=== PATIENT | female | born 1955 | race Caucasian/White ===

== ENCOUNTER 2022-10-14 21:53 | Inpatient (IN) | payer MEDICARE, OTHER ==
[~2022-10-14] VITALS: Ht 160 cm; Wt 98.0 kg
[2022-10-14 22:25] LABS: HEMATOCRIT 41.2 % (31.2-41.9); MEAN CORPUSCULAR HEMOGLOBIN 27.5 uug (24.7-32.8); MEAN CORPUSCULAR VOLUME 85.6 fL (75.5-95.3); PLATELET COUNT (AUTO) 294 K/uL (179-408)
[2022-10-14 22:50] LABS: ETHANOL < 3 MG/DL (0-0)
[2022-10-14] MEDS ORDERED: ACET-2154 PO (22:54)
[2022-10-14] MEDS ORDERED: HALO10TA13 PO (22:54)
[2022-10-14] MEDS ORDERED: MAGN400O6 PO (22:54)
[2022-10-14] MEDS ORDERED: GABA-532 PO (22:54)
[2022-10-14] MEDS ORDERED: MONT10TA33 PO (22:54)
[2022-10-14] MEDS ORDERED: LINA145C PO (22:54)
[2022-10-14] MEDS ORDERED: OXCA150T5 PO (22:54)
[2022-10-14] MEDS ORDERED: GEMF600T90 PO (22:54)
[2022-10-14] MEDS ORDERED: ATOR40TA PO (22:54)
[2022-10-14] MEDS ORDERED: CRAN425C6 PO (22:54)
[2022-10-14] MEDS ORDERED: OMEG-153 PO (22:54)
[2022-10-14] MEDS ORDERED: CALC-494 PO (22:54)
[2022-10-14] MEDS ORDERED: MULT-213 PO (22:54)
[2022-10-14] MEDS ORDERED: HALO100A2 IM (22:54)
[2022-10-14] MEDS ORDERED: MELA5TAB PO (22:54)
[2022-10-14] MEDS ORDERED: DOCU100C36 PO (22:54)
[2022-10-14] MEDS ORDERED: BENZ0.5T43 PO (22:54)
[2022-10-14] MEDS ORDERED: ISOS10TA2 PO (22:54)
[2022-10-14] MEDS ORDERED: SPIR50TA5 PO (22:54)
[2022-10-14 22:58] LABS: BILIRUBIN,DIRECT 0.3 mg/dL (0.0-0.2); BILIRUBIN,TOTAL 0.8 mg/dL (0.2-1.0); CARBON DIOXIDE 25 mmol/L (21-32); CHLORIDE 103 mmol/L (98-107); CREATININE 0.8 mg/dL (0.6-1.3); GLUCOSE 163 mg/dL (74-106); POTASSIUM 3.4 mmol/L (3.5-5.1); UREA NITROGEN, BLOOD 14 mg/dL (7-18)
[2022-10-14 22:59] LABS: ACETAMINOPHEN < 2.0 ug/mL (10-30); ALANINE AMINOTRANSFERASE 65 U/L (14-59); ALKALINE PHOSPHATASE 165 U/L (50-136); ASPARTATE AMINOTRANSFERASE 31 U/L (15-37); CREATINE KINASE, TOTAL 58 U/L (26-192)
--- NOTE | 2022-10-14 23:29 | NUR ---
Patient has been medically cleared by Dr Granado
--- NOTE | 2022-10-14 23:34 | NUR ---
report given to Eli HARVEY - [facility]
--- NOTE | 2022-10-15 00:44 | NUR ---
Pt. admitted to MHU room 138B [place] List completed bonifacio HARVEY aware of patient's arrival
[2022-10-15 01:00] VITALS: BP 133/94
[2022-10-15] MEDS ORDERED: MAG HYDROX/AL HYDROX/SIMETH 30 ML LIQUID UDC PO PRN (02:30)
[2022-10-15] MEDS ORDERED: QUETIAPINE FUMARATE 25 MG TABLET PO PRN ×2 (02:30→06:30)
[2022-10-15] MEDS ORDERED: MAGNESIUM HYDROXIDE 30 ML LIQUID UDC PO PRN (02:30)
--- NOTE | 2022-10-15 02:30 | NUR ---
AT APPROX 0100 ADMITTED 66 YEARS OLD FEMALE [facility] ON A 5150 FOR DTS AND DTO. HOLD WILL ON 10/17/22 AT 2057. PER HOLD, PATIENT WAS AGITATED YELLING AND SCREAMING. SHE REFUSED DIRECTIONS. STAFF REPORTED PATIENT IS REFUSING MEDICATIONS AND FOOD, SHE ALSO THREW THINGS AT STAFF AND RESIDENTS. SHE DENIED EVERYTHING. PATIENT ARRIVED AT THE UNIT VIA WHEELCHAIR AND ACCOMPANIED BY NEWS VIDEOTAPE EDITOR. UPON ADMISSION, PATIENT IS NOTED A/O X 1 TO 2. SHE IS UNCOOPERATIVE WITH ADMISSION PROCESS. SHE IS OBSERVED TALKING TO HERSELF AND TO THE SPACE. PATIENT REFLECTS WHAT IS WRITTEN ON THE HOLD. SHE DENIED THROWING THINGS AT STAFF AND RESIDENTS. SHE ALSO DENIED SI/HI/VA/VH. SHE IS ABLE TO CFS. SHE ALSO ASKED FOR SNACKS AND PO FLUIDS. SKIN ASSESSMENT WAS DONE. IIT WAS NOTED SOME REDNESS AND EXCORATIONS UNDER BOTH OF HER BREAST AND EDEMA +1 ON BOTH LOWER LEGS AND RT ANKLE. SHE REFUSED PICTURES AND SHE REFUSED TO SIGN ANY OF HER ADMISSION PAPERS. PATIENT WAS ADVISED OF HER HOLD, FACE TO FACE ASSESSMENT WAS DONE. SHE WAS GIVEN THE BOOKLET FOR PATIENT'S RIGHTS WHEN IN MENTAL HEALTH FACILITIES. PATIENT WAS INFORMED OF THE UNIT RULES ROOM AND ROOMMATE. PT IS UNDER THE CARE OF DR MENA. WILL CONTINUE TO MONITOR Q15 MIN CHECKS.
--- NOTE | 2022-10-15 07:32 | NUR ---
Dr Bolanos was notified of patient's admission.
[2022-10-15 08:08] VITALS: BP 155/79
[2022-10-15] MEDS: LISINOPRIL 5 MG TABLET PO SCH (11:00)
[2022-10-15] MEDS: OXCARBAZEPINE 150 MG TABLET PO SCH ×2 (12:38→16:38)
[2022-10-15] MEDS: GABAPENTIN 300 MG CAPSULE PO SCH ×2 (12:38→16:37)
[2022-10-15] MEDS: ISOSORBIDE DINITRATE 10 MG TABLET PO SCH ×2 (13:28→21:13)
--- NOTE | 2022-10-15 15:04 | NUR ---
Received patient sleeping in her room. Patient is A/O X 2 to person. Patient is suspicious with medications and refuses all PO, medical and Psych. Patient is isolative, withdrawn, demanding, quiet. Requires minimal assistance with ADL, ambulates with a wheel chair. Active listening provided. Fall and safety precautions implemented.
[2022-10-15 16:01] VITALS: BP 105/49
[2022-10-15] MEDS: GEMFIBROZIL 600 MG TABLET PO SCH (16:37)
[2022-10-15 20:13] VITALS: BP 100/60
[2022-10-15] MEDS: SPIRONOLACTONE 50 MG TABLET PO SCH (20:30)
[2022-10-15] MEDS: ATORVASTATIN 40 MG TABLET PO SCH (20:30)
[2022-10-15] MEDS: HALOPERIDOL 5 MG TABLET PO SCH (21:12)
--- NOTE | 2022-10-16 04:11 | NUR ---
GPS NOTES: Received patient wheeling herself in the hallway, she is A&0x2. She is unkempt looking and malodorous. Offered shower but refused. She stays mostly in her room sleeping. She is withdrawn, guarded and suspicious. Patient at first refused her routine medications, however, educated patient that med compliance is one of the criteria to get discharge, she is understanding and agrees to take her medications. She is making simple request usually snacks. Needs are provided and attended. During rounds she will be observed to be talking to herself, responding to internal stimuli. She denies SI. All safety measures implemented.
[2022-10-16] MEDS: ISOSORBIDE DINITRATE 10 MG TABLET PO SCH ×3 (06:00→22:00)
[2022-10-16 07:30] VITALS: BP 144/69
[2022-10-16] MEDS: HALOPERIDOL 5 MG TABLET PO SCH ×3 (08:54→20:21)
[2022-10-16] MEDS: SPIRONOLACTONE 50 MG TABLET PO SCH ×2 (08:54→20:21)
[2022-10-16] MEDS: GABAPENTIN 300 MG CAPSULE PO SCH ×3 (08:54→17:00)
[2022-10-16] MEDS: DOCUSATE SODIUM 100 MG CAPSULE PO SCH (08:54)
[2022-10-16] MEDS: GEMFIBROZIL 600 MG TABLET PO SCH ×2 (08:54→17:00)
[2022-10-16] MEDS: OMEGA-3 FATTY ACIDS/FISH OIL CAPSULE PO SCH (08:54)
[2022-10-16] MEDS: OXCARBAZEPINE 150 MG TABLET PO SCH ×3 (08:55→17:00)
[2022-10-16] MEDS: MULTIVIT, IRON, MIN NO. 8, FA TABLET PO SCH (08:55)
[2022-10-16] MEDS: MONTELUKAST SODIUM 10 MG TABLET PO SCH (08:55)
[2022-10-16] MEDS: LISINOPRIL 5 MG TABLET PO SCH (08:55)
[2022-10-16] MEDS ORDERED: Medication Not On Formulary EA (Linaclotide (Linzess) 145 MCG) PO SCH (09:00)
[2022-10-16] MEDS ORDERED: Medication Not On Formulary EA (Multivitamins W-Minerals (Multivitamin With Minerals) 1 PO SCH (09:00)
[2022-10-16] MEDS ORDERED: HALOPERIDOL DECANOATE 50 MG/1 ML AMPUL IM ONE (10:00)
[2022-10-16 10:10] LABS: HEMATOCRIT 38.1 % (31.2-41.9); MEAN CORPUSCULAR HEMOGLOBIN 27.8 uug (24.7-32.8); MEAN CORPUSCULAR VOLUME 85.1 fL (75.5-95.3); PLATELET COUNT (AUTO) 296 K/uL (179-408)
[2022-10-16 10:25] LABS: BILIRUBIN,TOTAL 0.5 mg/dL (0.2-1.0); CREATININE 0.7 mg/dL (0.6-1.3); PHOSPHOROUS 3.2 mg/dL (2.5-4.9); POTASSIUM 3.9 mmol/L (3.5-5.1); TOTAL PROTEIN, SERUM 7.6 g/dL (6.4-8.2)
[2022-10-16 10:36] LABS: THYROID STIMULATING HORMONE 1.317 mIU/mL (0.358-3.740)
--- NOTE | 2022-10-16 15:13 | NUR ---
Received patient sleeping in her room. Patient is A/O X 2 to person, place. Patient is suspicious with medications, demanding, delusional "I'm not taking any medications because I'm with twins" Patient refuses scheduled Haldol 150 mg/3 ml Long acting. Patient states "That's not Haldol. No one is poking me with that" Patient is refusing all PO medications. Patient ambulates in a wheel chair, requires minimal assistance. Active listening provided. Fall and safety precautions implemented.
[2022-10-16 16:00] VITALS: BP 104/55
--- NOTE | 2022-10-16 16:13 | NUR ---
SASKIA Initial Discharge Note: Pt currently resides at [facility] located at [address] [place] [address] ([phone]). Per Merlin olson at the facility, pt is welcome back upon discharge. SASKIA is waiting for Merlin to inform this SW if pt has a DPOA or conservator. SASKIA contacted pt, daughter, Taryn ([phone]) and left a voicemail for a call back. SASKIA will continue to work with pt, family and MD to ensure a safe and proper discharge plan.
--- NOTE | 2022-10-16 16:14 | NUR ---
SASKIA Family Contact: SASKIA contacted pt's daughter, Taryn ([phone]) and left a voicemail for a call back.
--- NOTE | 2022-10-16 16:16 | NUR ---
Firearms Report: Sewer Pipe Layer completed and submitted a [employer] firearms report for 5150 a danger to herself and a danger to others. A copy of report has been placed in patient chart.
[2022-10-16 19:40] VITALS: BP 116/62
[2022-10-16] MEDS: ATORVASTATIN 40 MG TABLET PO SCH (20:22)
--- NOTE | 2022-10-17 03:49 | NUR ---
GPS NOTES: Continues to refuse nursing care and medications. She is delusional being and observed talking to herself. Re-orientation to reality presented. She is disorganized and not making meaningful conversations. She stays mostly in bed, no participation or engagement to therapeutic conversation noted. Snacks and fluids provided per her request. Frequent monitoring observed during shift. All safety measures implemented.
[2022-10-17] MEDS: ISOSORBIDE DINITRATE 10 MG TABLET PO SCH ×3 (05:58→21:24)
[2022-10-17 07:30] VITALS: BP 122/56
[2022-10-17] MEDS: SPIRONOLACTONE 50 MG TABLET PO SCH ×2 (08:13→21:00)
[2022-10-17] MEDS: DOCUSATE SODIUM 100 MG CAPSULE PO SCH (08:13)
[2022-10-17] MEDS: OMEGA-3 FATTY ACIDS/FISH OIL CAPSULE PO SCH (08:14)
[2022-10-17] MEDS: GABAPENTIN 300 MG CAPSULE PO SCH ×3 (08:14→16:47)
[2022-10-17] MEDS: HALOPERIDOL 5 MG TABLET PO SCH ×3 (08:14→21:00)
[2022-10-17] MEDS: GEMFIBROZIL 600 MG TABLET PO SCH ×2 (08:14→16:46)
[2022-10-17] MEDS: MONTELUKAST SODIUM 10 MG TABLET PO SCH (08:14)
[2022-10-17] MEDS: LISINOPRIL 5 MG TABLET PO SCH (08:14)
[2022-10-17] MEDS: OXCARBAZEPINE 150 MG TABLET PO SCH ×3 (08:15→16:47)
[2022-10-17] MEDS: MULTIVIT, IRON, MIN NO. 8, FA TABLET PO SCH (08:15)
--- NOTE | 2022-10-17 15:00 | NUR ---
Received patient sleeping in her room. Patient is A/O X 2 to person, place. Patient is fixated on snacks, demanding, isolative, depressed, delusional "I'm refusing medications because it's not good for my baby". Patient requires minimal assistance with ADL. Emotional support provided. Fall and safety precautions implemented.
[2022-10-17 16:00] VITALS: BP 130/67
[2022-10-17 20:06] VITALS: BP 111/50
[2022-10-17] MEDS: ATORVASTATIN 40 MG TABLET PO SCH (21:00)
--- NOTE | 2022-10-18 00:24 | NUR ---
Patient refused all medications. The patient has been sporadically yelling. Threw orange juice across the room at the PRODUCT TEST ENGINEER and yelled " I am going to cut your eyes out ". The patient is verbally abusive to the staff, has no regard for the unit rules or the other patients. The patient makes statements " I am , 15 months. I will not take medications because it will hurt my baby ". The patient continues to slam the door to her room shut. Refusing to comply . Multiple tries by the staff to redirect this patient and encourage compliance during the shift. Safety Stratiges are in place. Monitoring for behavior escalation at this time.
[2022-10-18] MEDS: ISOSORBIDE DINITRATE 10 MG TABLET PO SCH ×3 (05:23→21:39)
[2022-10-18 07:30] VITALS: BP 129/53
[2022-10-18] MEDS: DOCUSATE SODIUM 100 MG CAPSULE PO SCH (08:39)
[2022-10-18] MEDS: SPIRONOLACTONE 50 MG TABLET PO SCH ×2 (08:39→20:46)
[2022-10-18] MEDS: OMEGA-3 FATTY ACIDS/FISH OIL CAPSULE PO SCH (08:39)
[2022-10-18] MEDS: GEMFIBROZIL 600 MG TABLET PO SCH ×2 (08:40→16:11)
[2022-10-18] MEDS: GABAPENTIN 300 MG CAPSULE PO SCH ×3 (08:40→16:11)
[2022-10-18] MEDS: HALOPERIDOL 5 MG TABLET PO SCH ×3 (08:40→20:46)
[2022-10-18] MEDS: MULTIVIT, IRON, MIN NO. 8, FA TABLET PO SCH (08:41)
[2022-10-18] MEDS: OXCARBAZEPINE 150 MG TABLET PO SCH ×3 (08:41→16:11)
[2022-10-18] MEDS: LISINOPRIL 5 MG TABLET PO SCH (08:41)
[2022-10-18] MEDS: MONTELUKAST SODIUM 10 MG TABLET PO SCH (08:41)
--- NOTE | 2022-10-18 14:26 | NUR ---
patient is alert and oriented x3, able to transferred self from bed to , refused all po medication delusional "I'm refusing medications because i am ,do you have any question about that?" Patient requires minimal assistance with ADL. Emotional support provided. Fall and safety precautions implemented.
[2022-10-18 16:00] VITALS: BP 120/70
[2022-10-18 20:00] VITALS: BP 145/48
[2022-10-18] MEDS: ATORVASTATIN 40 MG TABLET PO SCH (20:46)
--- NOTE | 2022-10-18 23:45 | NUR ---
The patient has been in her room most of the night. She did come out asking for food and juice at one point, then quickly retreated back and slammed the door. When asked about taking her medications, the patient refused. This patient is unkept and malodorous and also refuses to take a shower. At times, this patient will have outbursts of random yelling. Noted to be preoccupied by internal stimuli, and frequently making delusional statements. Safety Stratiges are in place and continuing to monitor the patient for aggression and behavior escalation. The patients Psychiatrist is aware of medication noncompliance.
[2022-10-19] MEDS: ISOSORBIDE DINITRATE 10 MG TABLET PO SCH ×3 (05:58→22:00)
[2022-10-19 07:49] VITALS: BP 131/78
[2022-10-19] MEDS: MONTELUKAST SODIUM 10 MG TABLET PO SCH (09:00)
[2022-10-19] MEDS: DOCUSATE SODIUM 100 MG CAPSULE PO SCH (09:00)
[2022-10-19] MEDS: MULTIVIT, IRON, MIN NO. 8, FA TABLET PO SCH (09:00)
[2022-10-19] MEDS: SPIRONOLACTONE 50 MG TABLET PO SCH ×2 (09:00→20:24)
[2022-10-19] MEDS: HALOPERIDOL 5 MG TABLET PO SCH ×3 (09:00→20:24)
[2022-10-19] MEDS: OMEGA-3 FATTY ACIDS/FISH OIL CAPSULE PO SCH (09:00)
[2022-10-19] MEDS: LISINOPRIL 5 MG TABLET PO SCH (09:00)
[2022-10-19] MEDS: GEMFIBROZIL 600 MG TABLET PO SCH ×2 (09:00→17:12)
[2022-10-19] MEDS: GABAPENTIN 300 MG CAPSULE PO SCH ×3 (09:00→17:12)
[2022-10-19] MEDS: OXCARBAZEPINE 150 MG TABLET PO SCH ×3 (09:00→17:13)
--- NOTE | 2022-10-19 14:48 | NUR ---
Patient is delusional "I'm not taking any meds because of my baby" Patient is fixated on snacks "I have a baby inside me, that's why I'm hungry all the time" Patient is isolative, withdrawn, depressed, confused and forgetful, suspicious with medications "It doesn't look like medicine". Patient is A/O X 2 to person. Emotional support provided. Fall and safety precautions implemented.
[2022-10-19 16:32] VITALS: BP 103/63
[2022-10-19] MEDS: GLUCERNA SHAKE 237 ML CAN PO SCH (17:13)
[2022-10-19 20:00] VITALS: BP 132/79
[2022-10-19] MEDS: ATORVASTATIN 40 MG TABLET PO SCH (20:24)
[2022-10-20] MEDS: ISOSORBIDE DINITRATE 10 MG TABLET PO SCH ×3 (05:17→22:00)
--- NOTE | 2022-10-20 05:26 | NUR ---
GPS NOTES: Patient refused routine medications. She is disorganized, delusional of having a twins, responding to internal stimuli. Isolative, withdrawn in her room. Do not make ant meaningful conversation. Frequent monitoring observed. safety strategies in placed.
[2022-10-20 08:21] VITALS: BP 109/73
[2022-10-20] MEDS: DOCUSATE SODIUM 100 MG CAPSULE PO SCH (08:22)
[2022-10-20] MEDS: GLUCERNA SHAKE 237 ML CAN PO SCH ×2 (08:22→16:51)
[2022-10-20] MEDS: SPIRONOLACTONE 50 MG TABLET PO SCH ×2 (08:22→20:06)
[2022-10-20] MEDS: GABAPENTIN 300 MG CAPSULE PO SCH ×3 (08:23→16:13)
[2022-10-20] MEDS: OMEGA-3 FATTY ACIDS/FISH OIL CAPSULE PO SCH (08:23)
[2022-10-20] MEDS: GEMFIBROZIL 600 MG TABLET PO SCH ×2 (08:23→16:13)
[2022-10-20] MEDS: LISINOPRIL 5 MG TABLET PO SCH (08:23)
[2022-10-20] MEDS: HALOPERIDOL 5 MG TABLET PO SCH ×3 (08:23→20:06)
[2022-10-20] MEDS: MONTELUKAST SODIUM 10 MG TABLET PO SCH (08:24)
[2022-10-20] MEDS: OXCARBAZEPINE 150 MG TABLET PO SCH ×3 (08:24→16:14)
[2022-10-20] MEDS: MULTIVIT, IRON, MIN NO. 8, FA TABLET PO SCH (08:24)
--- NOTE | 2022-10-20 14:17 | NUR ---
Received patient is alert and oriented x3, able to transferred self from bed to , refused all po medication due to delusional of she is for 18 month ,patient has poor insight and Patient requires minimal assistance with ADL. Emotional support provided. Fall and safety precautions implemented.
[2022-10-20 16:12] VITALS: BP 114/61
[2022-10-20 19:56] VITALS: BP 101/70
[2022-10-20] MEDS: ATORVASTATIN 40 MG TABLET PO SCH (20:06)
--- NOTE | 2022-10-21 03:09 | NUR ---
GPS NOTES: No significant behavioral changes noted. She remains delusional, not complying w/ nursing care and refusing medications. She is non-redirectable, isolative and withdrawn. She is seen talking to herself and responding to internal stimuli. Re-orientaion to reality needed. Snacks and fluids provided per her request. Tolerated well. Safety measures implemented at all times.
[2022-10-21] MEDS: ISOSORBIDE DINITRATE 10 MG TABLET PO SCH ×3 (06:00→21:03)
[2022-10-21] MEDS: GABAPENTIN 300 MG CAPSULE PO SCH ×3 (09:00→16:34)
[2022-10-21] MEDS: LISINOPRIL 5 MG TABLET PO SCH (09:00)
[2022-10-21] MEDS: MONTELUKAST SODIUM 10 MG TABLET PO SCH (09:00)
[2022-10-21] MEDS: GEMFIBROZIL 600 MG TABLET PO SCH ×2 (09:00→16:34)
[2022-10-21] MEDS: MULTIVIT, IRON, MIN NO. 8, FA TABLET PO SCH (09:00)
[2022-10-21] MEDS: SPIRONOLACTONE 50 MG TABLET PO SCH ×2 (09:00→20:22)
[2022-10-21] MEDS: OMEGA-3 FATTY ACIDS/FISH OIL CAPSULE PO SCH (09:00)
[2022-10-21] MEDS: HALOPERIDOL 5 MG TABLET PO SCH ×3 (09:00→20:23)
[2022-10-21] MEDS: DOCUSATE SODIUM 100 MG CAPSULE PO SCH (09:00)
[2022-10-21] MEDS: OXCARBAZEPINE 150 MG TABLET PO SCH ×3 (09:00→16:34)
[2022-10-21 09:03] VITALS: BP 118/59
[2022-10-21] MEDS: GLUCERNA SHAKE 237 ML CAN PO SCH ×2 (09:42→17:06)
--- NOTE | 2022-10-21 13:44 | NUR ---
patient is alert and oriented x2 ,up to wheel chair able to wheel self around in the unit.patient with Bizarre and uncooperative behavior ,mood is irritable and guarded. continue refused all schedule medication due to paranoid and delusional thought ,waiting for Reise hearing .safety measures implemented.
[2022-10-21 19:40] VITALS: BP 140/67
[2022-10-21] MEDS: ATORVASTATIN 40 MG TABLET PO SCH (20:23)
--- NOTE | 2022-10-22 02:44 | NUR ---
Patient continues to refuse all medications, is non compliant with unit rules and will not shower, its been 7 days so far , appearance is disheveled and patient is malodorous . The patients eyes are red with discharge but again she refusing care. This patient is delusional and is responding to internal stimuli, labile moods are also noted. Safety Stratiges are in place and continuing to monitor for compliance and behavior escalation.
[2022-10-22] MEDS: ISOSORBIDE DINITRATE 10 MG TABLET PO SCH ×3 (05:51→20:24)
[2022-10-22 07:46] VITALS: BP 130/98
[2022-10-22] MEDS: GLUCERNA SHAKE 237 ML CAN PO SCH ×2 (08:09→17:07)
[2022-10-22] MEDS: GEMFIBROZIL 600 MG TABLET PO SCH ×2 (09:00→17:00)
[2022-10-22] MEDS: MONTELUKAST SODIUM 10 MG TABLET PO SCH (09:00)
[2022-10-22] MEDS: LISINOPRIL 5 MG TABLET PO SCH (09:00)
[2022-10-22] MEDS: HALOPERIDOL 5 MG TABLET PO SCH ×3 (09:00→20:24)
[2022-10-22] MEDS: DOCUSATE SODIUM 100 MG CAPSULE PO SCH (09:00)
[2022-10-22] MEDS: OXCARBAZEPINE 150 MG TABLET PO SCH ×3 (09:00→17:00)
[2022-10-22] MEDS: OMEGA-3 FATTY ACIDS/FISH OIL CAPSULE PO SCH (09:00)
[2022-10-22] MEDS: SPIRONOLACTONE 50 MG TABLET PO SCH ×2 (09:00→20:24)
[2022-10-22] MEDS: MULTIVIT, IRON, MIN NO. 8, FA TABLET PO SCH (09:00)
[2022-10-22] MEDS: GABAPENTIN 300 MG CAPSULE PO SCH ×3 (09:00→17:00)
--- NOTE | 2022-10-22 14:49 | NUR ---
Patient has Riese hearing on 10/23/22 @ 11;30 AM, Dr. Bolanos notified.
[2022-10-22 15:11] VITALS: BP 131/77
[2022-10-22 19:43] VITALS: BP 132/74
[2022-10-22] MEDS: ATORVASTATIN 40 MG TABLET PO SCH (20:24)
--- NOTE | 2022-10-23 04:32 | NUR ---
Patient continues to be non compliant with medications, plan of care, unit rules and will not take a shower. This director underwriter sales has made multiple attempts to engage in dialogue and to encourage plus educate the patient on compliance and medications. Response was not favorable. Safety Stratiges remain in place.
[2022-10-23] MEDS: ISOSORBIDE DINITRATE 10 MG TABLET PO SCH ×3 (05:44→22:00)
[2022-10-23 07:30] VITALS: BP 135/81
[2022-10-23] MEDS: GLUCERNA SHAKE 237 ML CAN PO SCH ×2 (08:00→17:00)
[2022-10-23] MEDS: GABAPENTIN 300 MG CAPSULE PO SCH ×3 (09:00→17:00)
[2022-10-23] MEDS: HALOPERIDOL 5 MG TABLET PO SCH ×3 (09:00→20:05)
[2022-10-23] MEDS: GEMFIBROZIL 600 MG TABLET PO SCH ×2 (09:00→17:00)
[2022-10-23] MEDS: MULTIVIT, IRON, MIN NO. 8, FA TABLET PO SCH (09:00)
[2022-10-23] MEDS: LISINOPRIL 5 MG TABLET PO SCH (09:00)
[2022-10-23] MEDS: DOCUSATE SODIUM 100 MG CAPSULE PO SCH (09:00)
[2022-10-23] MEDS: MONTELUKAST SODIUM 10 MG TABLET PO SCH ×2 (09:00→17:08)
[2022-10-23] MEDS: OXCARBAZEPINE 150 MG TABLET PO SCH ×3 (09:00→17:00)
[2022-10-23] MEDS: OMEGA-3 FATTY ACIDS/FISH OIL CAPSULE PO SCH (09:00)
[2022-10-23] MEDS: SPIRONOLACTONE 50 MG TABLET PO SCH ×2 (09:00→20:05)
[2022-10-23] MEDS ORDERED: HALOPERIDOL LACTATE 5 MG/1 ML VIAL IM PRN (11:45)
--- NOTE | 2022-10-23 13:08 | NUR ---
Patient was riesed today. Patient refused Haldol 5 mg PO, and Haldol 5 mg IM was given as back up.
--- NOTE | 2022-10-23 15:12 | NUR ---
SASKIA Family Contact: SASKIA contacted pt's daughter, Taryn ([phone]) and left a voicemail for a call back.
--- NOTE | 2022-10-23 15:39 | NUR ---
Patient is having outbursts, throwing her food tray on the floor because she did not like the smell of it. Patient is delusional "I'm , not taking meds!" Patient is isolative, depressed, delusional "This food is poisonous. I'm not eating it" Patient ambulates with wheelchair. Requires minimal assistance with ADL. Active listening provided. Fall and safety precautions implemented.
[2022-10-23 16:00] VITALS: BP 135/54
[2022-10-23] MEDS: ATORVASTATIN 40 MG TABLET PO SCH (20:05)
[2022-10-23 20:28] VITALS: BP 154/77
--- NOTE | 2022-10-23 20:43 | NUR ---
GPS: Pt.is calm at this time and requested for bedtime snacks. All due meds.at this time taken PO without any resistance. Evasive when being questioned. Remains delusional but not saying much at this time. Re-directed prn. Will continue to monitor.
[2022-10-24] MEDS: ISOSORBIDE DINITRATE 10 MG TABLET PO SCH ×3 (06:00→21:03)
[2022-10-24 07:30] VITALS: BP 134/65
[2022-10-24] MEDS: GLUCERNA SHAKE 237 ML CAN PO SCH ×2 (08:00→17:00)
[2022-10-24] MEDS: HALOPERIDOL 5 MG TABLET PO SCH ×3 (08:31→20:39)
[2022-10-24] MEDS: OMEGA-3 FATTY ACIDS/FISH OIL CAPSULE PO SCH ×2 (08:32→08:43)
[2022-10-24] MEDS: GABAPENTIN 300 MG CAPSULE PO SCH ×3 (08:33→17:07)
[2022-10-24] MEDS: OXCARBAZEPINE 150 MG TABLET PO SCH ×3 (08:33→17:07)
[2022-10-24] MEDS: SPIRONOLACTONE 50 MG TABLET PO SCH ×2 (08:33→21:00)
[2022-10-24] MEDS: DOCUSATE SODIUM 100 MG CAPSULE PO SCH ×2 (08:33→08:42)
[2022-10-24] MEDS: LISINOPRIL 5 MG TABLET PO SCH (08:33)
[2022-10-24] MEDS: MULTIVIT, IRON, MIN NO. 8, FA TABLET PO SCH ×2 (08:33→08:43)
[2022-10-24] MEDS: GEMFIBROZIL 600 MG TABLET PO SCH ×3 (09:00→17:06)
--- NOTE | 2022-10-24 15:24 | NUR ---
Patient is isolative, withdrawn, compliant with most of medications, delusional about food being poisonous and being with twins. Patient is A/O X 2 to person. Requires minimal assistance with ADL, ambulates with wheelchair, refusing shower since admission. Emotional support provided. Fall and safety precautions implemented.
[2022-10-24 16:00] VITALS: BP 119/55
[2022-10-24] MEDS: MONTELUKAST SODIUM 10 MG TABLET PO SCH ×2 (17:06→17:15)
[2022-10-24] MEDS: ATORVASTATIN 40 MG TABLET PO SCH (20:39)
[2022-10-24 20:49] VITALS: BP 92/52
[2022-10-24 21:04] VITALS: BP 100/60
[2022-10-25] MEDS: ISOSORBIDE DINITRATE 10 MG TABLET PO SCH ×3 (06:00→20:55)
[2022-10-25 07:30] VITALS: BP 106/46
[2022-10-25] MEDS: OMEGA-3 FATTY ACIDS/FISH OIL CAPSULE PO SCH ×2 (08:59→09:00)
[2022-10-25] MEDS: GEMFIBROZIL 600 MG TABLET PO SCH ×2 (08:59→17:00)
[2022-10-25] MEDS: HALOPERIDOL 5 MG TABLET PO SCH ×3 (08:59→20:48)
[2022-10-25] MEDS: DOCUSATE SODIUM 100 MG CAPSULE PO SCH ×2 (08:59→09:00)
[2022-10-25] MEDS: MULTIVIT, IRON, MIN NO. 8, FA TABLET PO SCH ×2 (08:59→09:00)
[2022-10-25] MEDS: LISINOPRIL 5 MG TABLET PO SCH (09:00)
[2022-10-25] MEDS: OXCARBAZEPINE 150 MG TABLET PO SCH ×3 (09:00→17:00)
[2022-10-25] MEDS: SPIRONOLACTONE 50 MG TABLET PO SCH ×2 (09:00→20:55)
[2022-10-25] MEDS: GABAPENTIN 300 MG CAPSULE PO SCH ×4 (09:00→17:00)
[2022-10-25] MEDS: GLUCERNA SHAKE 237 ML CAN PO SCH ×2 (09:01→17:00)
[2022-10-25 16:00] VITALS: BP 124/60
--- NOTE | 2022-10-25 16:09 | NUR ---
Patient is confinding in her room, not interacting with peers or staff, demanding and needy at times, selective with medications, take most of them. A/O X 2 -3 to person, place. Requires minimal assistance, ambulates with wheelchair. Reassurance given. Fall and safety precautions implemented.
[2022-10-25] MEDS: MONTELUKAST SODIUM 10 MG TABLET PO SCH (17:04)
--- NOTE | 2022-10-25 17:04 | NUR ---
patient refuses all 17:00 medications. Patient states "I'm in a bad mood, don't want them, not psycho!"
[2022-10-25 20:14] VITALS: BP 120/79
[2022-10-25] MEDS: ATORVASTATIN 40 MG TABLET PO SCH (20:55)
--- NOTE | 2022-10-26 02:09 | NUR ---
The patient has stayed in her room this whole shift so far, responding to internal stimuli. The patient was only willing to take Haldol PO this PM in order to avoid the Riese injection. All other medications have been refused, along with taking a shower. The patient has not bathed in 11 days. Still delusional ,with no improvement in her behavior is seen at this time. Safety Stratiges remain in place. Continuing to monitor for compliance and escalation of behavior.
[2022-10-26] MEDS: ISOSORBIDE DINITRATE 10 MG TABLET PO SCH ×3 (06:00→22:00)
[2022-10-26] MEDS: GLUCERNA SHAKE 237 ML CAN PO SCH ×2 (08:00→16:50)
[2022-10-26 08:02] VITALS: BP 127/82
[2022-10-26] MEDS: DOCUSATE SODIUM 100 MG CAPSULE PO SCH (08:24)
[2022-10-26] MEDS: OMEGA-3 FATTY ACIDS/FISH OIL CAPSULE PO SCH (08:24)
[2022-10-26] MEDS: SPIRONOLACTONE 50 MG TABLET PO SCH ×3 (08:24→20:39)
[2022-10-26] MEDS: GABAPENTIN 300 MG CAPSULE PO SCH ×3 (08:24→16:50)
[2022-10-26] MEDS: LISINOPRIL 5 MG TABLET PO SCH (08:24)
[2022-10-26] MEDS: HALOPERIDOL 5 MG TABLET PO SCH ×3 (08:24→20:27)
[2022-10-26] MEDS: GEMFIBROZIL 600 MG TABLET PO SCH ×2 (08:24→16:50)
[2022-10-26] MEDS: OXCARBAZEPINE 150 MG TABLET PO SCH ×3 (08:25→16:50)
[2022-10-26] MEDS: MULTIVIT, IRON, MIN NO. 8, FA TABLET PO SCH (08:25)
[2022-10-26] MEDS ORDERED: HALOPERIDOL DECANOATE 50 MG/1 ML AMPUL IM ONE (11:00)
[2022-10-26 16:22] VITALS: BP 143/97
[2022-10-26] MEDS: MONTELUKAST SODIUM 10 MG TABLET PO SCH (17:08)
[2022-10-26 20:00] VITALS: BP 109/72
[2022-10-26] MEDS: ATORVASTATIN 40 MG TABLET PO SCH (20:27)
[2022-10-27] MEDS: ISOSORBIDE DINITRATE 10 MG TABLET PO SCH ×3 (06:00→21:04)
[2022-10-27 07:54] VITALS: BP 111/75
[2022-10-27] MEDS: SPIRONOLACTONE 50 MG TABLET PO SCH ×2 (08:26→21:05)
[2022-10-27] MEDS: OXCARBAZEPINE 150 MG TABLET PO SCH ×3 (08:26→17:04)
[2022-10-27] MEDS: GLUCERNA SHAKE 237 ML CAN PO SCH ×2 (08:26→17:05)
[2022-10-27] MEDS: HALOPERIDOL 5 MG TABLET PO SCH ×3 (08:26→21:05)
[2022-10-27] MEDS: GABAPENTIN 300 MG CAPSULE PO SCH ×3 (08:26→17:00)
[2022-10-27] MEDS: OMEGA-3 FATTY ACIDS/FISH OIL CAPSULE PO SCH (08:27)
[2022-10-27] MEDS: GEMFIBROZIL 600 MG TABLET PO SCH ×2 (08:27→17:00)
[2022-10-27] MEDS: DOCUSATE SODIUM 100 MG CAPSULE PO SCH (08:27)
[2022-10-27] MEDS: LISINOPRIL 5 MG TABLET PO SCH (08:27)
[2022-10-27] MEDS: MULTIVIT, IRON, MIN NO. 8, FA TABLET PO SCH (08:29)
[2022-10-27 16:37] VITALS: BP 102/44
[2022-10-27] MEDS: MONTELUKAST SODIUM 10 MG TABLET PO SCH (17:06)
[2022-10-27 19:56] VITALS: BP 100/57
[2022-10-27] MEDS: ATORVASTATIN 40 MG TABLET PO SCH (21:05)
[2022-10-28] MEDS: ISOSORBIDE DINITRATE 10 MG TABLET PO SCH ×3 (07:07→21:05)
[2022-10-28 08:01] VITALS: BP 123/67
[2022-10-28] MEDS: GLUCERNA SHAKE 237 ML CAN PO SCH ×2 (08:36→17:11)
[2022-10-28] MEDS: OXCARBAZEPINE 150 MG TABLET PO SCH (08:40)
[2022-10-28] MEDS: HALOPERIDOL 5 MG TABLET PO SCH ×3 (08:40→21:05)
[2022-10-28] MEDS: SPIRONOLACTONE 50 MG TABLET PO SCH ×2 (08:40→21:05)
[2022-10-28] MEDS: MULTIVIT, IRON, MIN NO. 8, FA TABLET PO SCH (08:40)
[2022-10-28] MEDS: LISINOPRIL 5 MG TABLET PO SCH (08:41)
[2022-10-28] MEDS: DOCUSATE SODIUM 100 MG CAPSULE PO SCH (08:42)
[2022-10-28] MEDS: OMEGA-3 FATTY ACIDS/FISH OIL CAPSULE PO SCH (08:43)
[2022-10-28] MEDS: GABAPENTIN 300 MG CAPSULE PO SCH ×3 (08:43→16:07)
[2022-10-28] MEDS: GEMFIBROZIL 600 MG TABLET PO SCH ×2 (08:43→16:07)
[2022-10-28] MEDS: OXCARBAZEPINE 300 MG TABLET PO SCH ×2 (12:40→17:10)
[2022-10-28] MEDS ORDERED: OXCARBAZEPINE 150 MG TABLET PO SCH (13:00)
--- NOTE | 2022-10-28 16:01 | NUR ---
Received patient is alert and oriented x3, selected schedule medication but took Haldol at all time.patient is delusional and delusional talk to self ,able to transfer self from bed to wheel chair , will continue close monitoring.
[2022-10-28 16:05] VITALS: BP 92/51
[2022-10-28] MEDS: MONTELUKAST SODIUM 10 MG TABLET PO SCH (17:10)
[2022-10-28 19:43] VITALS: BP 116/64
[2022-10-28] MEDS: ATORVASTATIN 40 MG TABLET PO SCH (21:05)
[2022-10-29] MEDS: ISOSORBIDE DINITRATE 10 MG TABLET PO SCH ×3 (06:26→22:00)
[2022-10-29 08:00] VITALS: BP 110/54
[2022-10-29] MEDS: MULTIVIT, IRON, MIN NO. 8, FA TABLET PO SCH (09:00)
[2022-10-29] MEDS: DOCUSATE SODIUM 100 MG CAPSULE PO SCH (09:00)
[2022-10-29] MEDS: SPIRONOLACTONE 50 MG TABLET PO SCH ×2 (09:00→21:08)
[2022-10-29] MEDS: HALOPERIDOL 5 MG TABLET PO SCH ×5 (09:00→21:08)
[2022-10-29] MEDS: GEMFIBROZIL 600 MG TABLET PO SCH ×2 (09:00→17:00)
[2022-10-29] MEDS: GABAPENTIN 300 MG CAPSULE PO SCH ×4 (09:00→17:00)
[2022-10-29] MEDS: LISINOPRIL 5 MG TABLET PO SCH (09:00)
[2022-10-29] MEDS: OMEGA-3 FATTY ACIDS/FISH OIL CAPSULE PO SCH (09:00)
[2022-10-29] MEDS: OXCARBAZEPINE 300 MG TABLET PO SCH ×4 (09:00→17:05)
[2022-10-29] MEDS: GLUCERNA SHAKE 237 ML CAN PO SCH ×2 (10:13→17:06)
--- NOTE | 2022-10-29 13:47 | NUR ---
SW Discharge Update SW faxed patient's referral packet including: History and Physical, Consultation, Progress Notes, Medication List and Labs to the following facilities for review and possible mcc placement: [facility] located at [address] [address] via Ambulance transportation at 11AM ([phone]) and spoke with Merlin olson who confirmed pt's return to their facility on Friday, October 30, 2022.
--- NOTE | 2022-10-29 13:59 | NUR ---
SASKIA Family Contact: SASKIA contacted pt's daughter, Taryn ([phone]) and left a voicemail regarding pt's discharge plan.
--- NOTE | 2022-10-29 14:45 | NUR ---
Received patient sleeping in her room. A/O X 2 to person, place. Patient is isolative, depressed, confinding in her room, selective with medications, paranoid about people and places. Patient states "I don't want to be discharge to another facility. They're probably bad!" Patient ambulates with wheelchair, unsteady gait, lower extremities weakness. Active listening provided. Fall and safety precautions implemented.
[2022-10-29 16:01] VITALS: BP 125/83
[2022-10-29] MEDS: MONTELUKAST SODIUM 10 MG TABLET PO SCH (17:06)
[2022-10-29 19:55] VITALS: BP 136/76
[2022-10-29] MEDS: ATORVASTATIN 40 MG TABLET PO SCH (21:08)
[2022-10-30] MEDS: ISOSORBIDE DINITRATE 10 MG TABLET PO SCH ×2 (06:00→06:09)
[2022-10-30 07:30] VITALS: BP 122/80
[2022-10-30] MEDS: HALOPERIDOL 5 MG TABLET PO SCH (08:43)
[2022-10-30] MEDS: OXCARBAZEPINE 300 MG TABLET PO SCH (08:43)
[2022-10-30] MEDS: GLUCERNA SHAKE 237 ML CAN PO SCH (08:48)
[2022-10-30] MEDS: DOCUSATE SODIUM 100 MG CAPSULE PO SCH (08:49)
[2022-10-30] MEDS: SPIRONOLACTONE 50 MG TABLET PO SCH (08:49)
[2022-10-30] MEDS: OMEGA-3 FATTY ACIDS/FISH OIL CAPSULE PO SCH (08:49)
[2022-10-30 08:50] VITALS: BP 122/80
[2022-10-30] MEDS: GEMFIBROZIL 600 MG TABLET PO SCH (08:50)
[2022-10-30] MEDS: GABAPENTIN 300 MG CAPSULE PO SCH (08:50)
[2022-10-30] MEDS: LISINOPRIL 5 MG TABLET PO SCH (08:50)
[2022-10-30] MEDS: MULTIVIT, IRON, MIN NO. 8, FA TABLET PO SCH (08:51)
--- NOTE | 2022-10-30 09:46 | NUR ---
SASKIA Discharge Note: Pt will be discharged to [facility] located at [address] [address] via Ambulance transportation at 11AM ([phone]). SASKIA spoke with Merlin olson at the facility who states they are ready to accept the patient today. SASKIA contacted pts daughter, Taryn ([phone]) and left a voicemail regarding the discharge details. Pt is aware and agreeable with discharge plan. Pt is alert and oriented x2, is unable to plan for self-care at this time. However, pt is willing to accept care at SNF. Pt denies any suicidal or homicidal ideation. Pt will follow-up at the facility with Psychiatrist, Dr. Bolanos ([phone]) and Assembler Rubber Footwear, Dr. Ocampo. Pt presents with calm mood and congruent affect. PHARMACY: [facility] ([phone]) [address] [place] [address].
--- NOTE | 2022-10-30 11:59 | NUR ---
Received orders to discharge this patient to [facility] located at [address] [facility] [address] via Ambulance transportation at 11AM ([phone]). Patient is agreeable with discharge plans, and signed all discharge documentation. Patient denies SI/HI AH/VH, SOB, pain or any discomfort. Patient left the unit at 11:30 am. All belongings were returned to patient. Emotional support provided. Fall and safety precautions implemented.
[2022-11-26] MEDS ORDERED: HALOPERIDOL DECANOATE 50 MG/1 ML AMPUL IM SCH (09:00)
== END 2022-10-30 11:30 | DRG 885 ==
LOC: ER 22:08 → GPS 23:30
PROVIDERS: ADMIT Psychiatry & Neurology Psychiatry; ATTEND Internal Medicine
DX: F25.9 Schizoaffective disorder, unspecified (principal); F32.A Depression, unspecified; F41.9 Anxiety disorder, unspecified; J44.9 Chronic obstructive pulmonary disease, unspecified; R73.03 Prediabetes; Z86.16 Personal history of COVID-19; Z91.14 Patient's other noncompliance with medication regimen; G89.4 Chronic pain syndrome; I25.10 Atherosclerotic heart disease of native coronary artery without angina pectoris; Z88.6 Allergy status to analgesic agent; K59.00 Constipation, unspecified; Z68.38 Body mass index [BMI] 38.0-38.9, adult; K21.9 Gastro-esophageal reflux disease without esophagitis; R74.01 Elevation of levels of liver transaminase levels; E78.5 Hyperlipidemia, unspecified; E66.9 Obesity, unspecified; F17.210 Nicotine dependence, cigarettes, uncomplicated; I10 Essential (primary) hypertension; Z20.822 Contact with and (suspected) exposure to COVID-19; G31.84 Mild cognitive impairment of uncertain or unknown etiology; M19.90 Unspecified osteoarthritis, unspecified site
CPT/HCPCS: 36415; 83550; 83690; 83735; 84100; 84443; 85025; 93005; A4663; G0480; J1630; J1631